=== PATIENT | female | born 1970 | race Hispanic/Latino ===

== ENCOUNTER 2018-02-24 21:58 | Emergency (ER) | payer SELFPAY ==
[~2018-02-24] VITALS: Ht 160 cm; Wt 95.3 kg
[2018-02-24 22:31] LABS: CLARITY,URINE CLEAR (CLEAR); COLOR,URINE YELLOW (YELLOW)
[2018-02-24 22:34] LABS: KETONES,URINE NEGATIVE (NEGATIVE); LEUKOCYTE ESTERASE ,URINE NEGATIVE (NEGATIVE); NITRITE,URINE NEGATIVE (NEGATIVE); PREGNANCY TEST, URINE NEGATIVE (NEGATIVE); PROTEIN,URINE DIPSTICK NEGATIVE (NEGATIVE)
[2018-02-24 22:35] LABS: BILIRUBIN,URINE NEGATIVE (NEGATIVE); URINE UROBILINOGEN 0.2 mg/dL (0.2 - 1)
[2018-02-24 22:40] LABS: EPITHELIAL CELLS,URINE RARE /LPF; RBC,URINE 0-5 /HPF (0-5); WBC,URINE (MAN) 0-5 /HPF (0-5)
--- NOTE | 2018-02-24 23:19 | Diagnostic Imaging Report ---
EXAMINATION: Head CT without contrast. HISTORY:Fall. COMPARISON:None. TECHNIQUE: Multidetector axial images were obtained from the foramen magnum to the vertex without contrast. The images were reconstructed using brain and bone algorithms. Thin section brain images were reformatted into coronal and sagittal planes. Intravenous contrast: None IMAGE QUALITY: Acceptable. FINDINGS: Skull/scalp: No lytic or blastic. lesions. No surgical changes. Parenchyma: No abnormal density. No acute hemorrhage, mass or acute major vascular territorial infarct. Arteries: No density suggestive of thrombosis. Dural sinuses: No abnormal density suggestive of thrombosis. Ventricles: No hydrocephalus or displacement. Extra-axial spaces: No abnormal density. Brain volume: Normal for age. Craniocervical junction: No mass, Chiari malformation, or basilar invagination. Sella: CSF filled mildly enlarged partial empty sella. Paranasal/mastoid sinuses: Imaged portions unremarkable. IMPRESSION: No acute intracranial abnormality. Incidental CSF filled partial empty sella. Signed by: Dr. Shawna Acosta M.D. on 02/24/2018 11:16 PM
--- NOTE | 2018-02-24 23:24 | Diagnostic Imaging Report ---
History: Fall. Comparison studies: None Technique: Axial images were obtained through the cervical region.. Coronal and sagittal images reconstructed from the axial data.. Intravenous contrast: None Findings: Fractures: None. Soft tissue injuries: None. Atlantoaxial articulation: Intact. Alignment: Reversal of normal cervical lordosis is either positional or due to muscle spasm.. No scoliosis. Cervicomedullary junction: No abnormalities. The foramen magnum is patent. Soft tissues: No abnormalities. Vertebrae: No fractures, infection or neoplasm. Degenerative changes: C5-C6: Moderate degenerative disc disease with decreased intervertebral disc space, anterior vertebral osteophyte and endplate degenerative changes. Posterior disc osteophyte complex without canal stenosis. Mild right foraminal stenosis due to facet and uncovertebral arthrosis. IMPRESSION: 1. No acute cervical spine fracture. Reversal of normal cervical lordosis is either positional or due to muscle spasm. 2. Ligament, spinal cord and or vascular abnormalities cannot be excluded on the basis of this examination. 3. Mild cervical spondylosis at C5-C6. Signed by: Dr. Shawna Acosta M.D. on 02/24/2018 11:20 PM
[2018-02-24] MEDS ORDERED: TRAMADOL HCL 50 MG TAB PO ONE (23:30)
--- NOTE | 2018-02-25 00:01 | Diagnostic Imaging Report ---
LUMBAR 3 VIEW Comparison: None Clinical history: Status post fall, back pain Findings: Suboptimal obliqued lateral view. No definite listhesis. Vertebral body heights are preserved. There are mild multilevel degenerative endplate/disc changes and probable L4-S1 facet arthrosis. Bilateral tubal ligation clips overlie the pelvis. Impression: No acute bony abnormality Signed by: Dr Flor Silverio MD on 02/24/2018 11:58 PM
[2018-02-25 00:16] VITALS: BP 142/73
== END 2018-02-25 00:30 | disposition home or self-care (01) ==
LOC: ER 21:58
DX: S00.83XA Contusion of other part of head, initial encounter (principal); S16.1XXA Strain of muscle, fascia and tendon at neck level, initial encounter; S33.5XXA Sprain of ligaments of lumbar spine, initial encounter; W01.0XXA Fall on same level from slipping, tripping and stumbling without subsequent striking against object, initial encounter; Y93.01 Activity, walking, marching and hiking; Y99.0 Civilian activity done for income or pay
CPT/HCPCS: 70450; 72100; 72125; 81001; 81025; 99284